=== PATIENT | male | born 1975 | race Hispanic/Latino ===

== ENCOUNTER 2018-04-20 18:42 | Emergency (ER) | payer SELFPAY ==
[2018-04-20 18:48] VITALS: TEMP 98.9; O2SAT 99
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
[2018-04-20 20:13] LABS: BASO % 0.7 % (0.0-2.0); EOS # 0.1 K/uL (0.0-0.7); EOS % 2.1 % (0.0-4.0); LYMPH # 1.5 K/uL (1.0-4.3); LYMPH % 25.4 % (20.0-40.0); MEAN CELL VOLUME 58.6 fl (80.0-94.0); MEAN CORPUSCULAR HEMOGLOBIN 17.8 pg (27.0-31.0); MEAN CORPUSCULAR HGB CONC 30.3 g/dL (33.0-37.0); MEAN PLATELET VOLUME 8.6 fl (7.2-11.7); MONO # 0.3 K/uL (0.0-0.8); MONO % 4.7 % (0.0-10.0); NEUT # 3.9 K/uL (1.8-7.0); NEUT % 67.1 % (50.0-75.0); RBC 6.73 Mil/uL (4.40-5.90); RED CELL DISTRIBUTION WIDTH 17.1 % (11.5-14.5); WHITE BLOOD COUNT 5.8 K/uL (4.8-10.8)
[2018-04-20 20:23] LABS: ALB/GLOB RATIO 1.3 (1.0-2.1); ALBUMIN 4.2 g/dL (3.5-5.0); ALT/SGPT 33 U/L (21-72); AST/SGOT 33 U/L (17-59); BLOOD UREA NITROGEN 14 mg/dl (9-20); CALCIUM 9.2 mg/dL (8.4-10.2); GFR NON-AFRICAN AMERICAN > 60
[2018-04-20] MEDS ORDERED: Sodium Chloride 0.9% 1,000 ML IV STA (20:28)
[2018-04-20 23:29] VITALS: BP 135/97; PULSE 78; RESP 17
--- NOTE | 2018-04-21 10:11 | CT ---
Date of service: 04/20/2018 PROCEDURE: CT HEAD WITHOUT CONTRAST. HISTORY: seizure, known brain mass COMPARISON: None available. TECHNIQUE: Axial computed tomography images were obtained through the head/brain without intravenous contrast. Radiation dose: Total exam DLP = 860.77 mGy-cm. This CT exam was performed using one or more of the following dose reduction techniques: Automated exposure control, adjustment of the mA and/or kV according to patient size, and/or use of iterative reconstruction technique. FINDINGS: HEMORRHAGE: No intracranial hemorrhage. BRAIN: Chronic lobar infarction left parietal lobe evident. Remaining brain parenchyma appears normal in density and corticomedullary differentiation, above and below the tentorium including throughout the brainstem. No mass effect. No definitive mass appreciable in this noncontrast CT. CT or MRI without contrast may be useful for added characterization of the brain parenchyma. VENTRICLES: Unremarkable. No hydrocephalus. CALVARIUM: Unremarkable. PARANASAL SINUSES: Unremarkable as visualized. No significant inflammatory changes. MASTOID AIR CELLS: Unremarkable as visualized. No inflammatory changes. OTHER FINDINGS: None. IMPRESSION: Chronic lobar infarction left parietal lobe. Exam otherwise unremarkable. A definitive mass is not apparent in the current examination and consideration of contrast CT or MRI without contrast can be utilized for added characterization. No prior comparison available. Concordant preliminary report from [employer], 04/20/2018.
--- NOTE | 2018-04-21 10:50 | CARD ---
APPROVED REPORT Date of service: 04/20/2018 EKG Measurement Heart [id number] <Conclusion> Sinus bradycardia Otherwise normal ECG
[2018-04-21 16:12] LABS: PROLACTIN 6.6 ng/mL (3.7-17.9)
== END 2018-04-20 23:28 | disposition home or self-care (01) ==
LOC: H.ER 18:42
DX: R41.82 Altered mental status, unspecified (principal); R51 Headache; G93.9 Disorder of brain, unspecified
CPT/HCPCS: 70450; 80053; 80185; 82948; 83605; 83735; 84146; 85025; 93005; 96360; 99284; J1885; J7030

== ENCOUNTER 2018-04-21 04:54 | Emergency (ER) | payer MEDICAID ==
[2018-04-21 05:06] VITALS: BMI 27.9
[2018-04-21 05:12] VITALS: BP 130/78; PULSE 56; RESP 18; TEMP 98; O2SAT 98
--- NOTE | 2018-04-21 05:28 | ED PDOC ---
HPI: Psych/Substance Abuse Time Seen by Provider: 04/21/18 05:05 Chief Complaint (Nursing): Psychiatric Evaluation Chief Complaint (Provider): Crisis Evaluation History Per: Patient History/Exam Limitations: no limitations Onset/Duration Of Symptoms: Mins (prior to arrival) Current Symptoms Are (Timing): Still Present Additional Complaint(s): 42 year old male presents to the ED for a crisis evaluation. Patient was seen approximately five hours prior and discharged after a full workup related to a head injury/ possible seizure. At the time, patient did not mention he was homeless, but proceeded to sit in the waiting room s/p discharge. As per nursing staff, as patient was being removed from the waiting room around 0500, he subsequently made a complaint that he is suicidal with no active plan. PMD: none provided Past Medical History Reviewed: Historical Data, Nursing Documentation, Vital Signs Vital Signs: Last Vital Signs Temp 98.0 F 04/21/18 05:07 Pulse 56 L 04/21/18 05:07 Resp 18 04/21/18 05:07 BP 130/78 04/21/18 05:07 Pulse Ox 98 04/21/18 05:07 - Medical History PMH: Malignancy (brain tumor), Seizures - Surgical History Other surgeries: tumor resection - Family History Family History: States: Unknown Family Hx - Living Arrangements Living Arrangements: Other (homeless) - Allergies Allergies/Adverse Reactions: Allergies Allergy/AdvReac Type Severity Reaction Status Date / Time No Known Allergies Allergy Verified 04/21/18 05:06 Review of Systems ROS Statement: Except As Marked, All Systems Reviewed And Found Negative Psych: Positive for: Suicidal ideation Physical Exam - Reviewed Nursing Documentation Reviewed: Yes Vital Signs Reviewed: Yes - Physical Exam Appears: Positive for: No Acute Distress (resting comfortably) Head Exam: Positive for: ATRAUMATIC, NORMOCEPHALIC Skin: Positive for: Normal Color, Warm, Dry Eye Exam: Positive for: Normal appearance ENT: Positive for: Normal ENT Inspection Neck: Positive for: Normal, Painless ROM Cardiovascular/Chest: Positive for: Regular Rate, Rhythm Respiratory: Positive for: Normal Breath Sounds. Negative for: Respiratory Distress Gastrointestinal/Abdominal: Positive for: Normal Exam, Soft. Negative for: Tenderness Back: Positive for: Normal Inspection Extremity: Positive for: Normal ROM Neurologic/Psych: Positive for: Alert (and awake) - ECG O2 Sat by Pulse Oximetry: 98 (RA) Pulse Ox Interpretation: Normal Medical Decision Making Medical Decision Making: Time: 0506 Initial Impression: 42 year old male with suicidal ideation Initial Plan: --Crisis evaluation --Drug screen Patient evaluated by crisis and is stable for discharge Dx Adjustment disorder Scribe Attestation: Documented by Radha Wallis, acting as a scribe for Franki Briggs MD. Provider Scribe Attestation: All medical record entries made by the Scribe were at my direction and personally dictated by me. I have reviewed the chart and agree that the record accurately reflects my personal performance of the history, physical exam, me dical decision making, and the department course for this patient. I have also personally directed, reviewed, and agree with the discharge instructions and disposition. Disposition - Clinical Impression Clinical Impression: Adjustment disorder - Disposition Disposition: Routine/Home Disposition Time: 06:30 Condition: STABLE Instructions: Adjustment Disorder Forms: [employer] ([employer])
[2018-04-21 06:11] LABS: BARBITURATES, UR NEGATIVE (NEGATIVE); BENZODIAZEPINES, UR NEGATIVE (NEGATIVE); OPIATES, UR NEGATIVE (NEGATIVE); PHENCYCLIDINE, UR NEGATIVE (NEGATIVE)
== END 2018-04-21 06:31 | disposition home or self-care (01) ==
LOC: H.ER 04:54
DX: F43.20 Adjustment disorder, unspecified (principal)